=== PATIENT | male | born 1945 | race Caucasian/White ===

== ENCOUNTER 2018-02-26 08:33 | Outpatient (CLI) | payer MEDICARE ==
[~2018-02-26] VITALS: Ht 188 cm; Wt 99.1 kg
--- NOTE | ~2018-02-26 | OP ---
PATIENT NAME: AYAH FLOWERS MEDICAL RECORD: [id number] :[birth year] LOCATION:D.CAT ADMISSION DATE: SURGEON: KEMAR ALBA MD DATE OF OPERATION: 02/26/2018 PROCEDURES: 1. PTCA stent LAD. 2. Left heart catheterization. 3. Selective coronary angiography. 4. Left ventriculogram. INDICATION: Angina and coronary artery disease. PROCEDURE IN DETAIL: After informed consent was obtained and after a detailed description of risks, benefits as well as alternative therapies, the patient elected to proceed with angiogram and angioplasty. The right radial area was prepped and draped in normal sterile fashion. Right radial artery was cannulated via modified Seldinger technique with placement of 6-Italian sheath. All catheters exchanged through this sheath. FINDINGS: Left ventriculogram performed in standard 30-degree HARPER view, reveals good cardiac wall motion throughout all segments. Overall ejection fraction is 60%. SELECTIVE CORONARY ANGIOGRAPHY: 1. Left main is with no significant angiographic disease. 2. Left anterior descending has 80% stenosis proximally, 80% stenosis in the mid vessel. 3. The left circumflex has moderate irregularities, but no flow-limiting stenosis. 4. Right coronary has moderate irregularities, but no flow-limiting stenosis. PTCA STENT OF THE LAD: The stents used were 3.5 x 26 and 3.5 x 12, both Gunnar stents. Result was 0% residual stenosis. OVERALL IMPRESSION: Status percutaneous transluminal coronary angioplasty stent of the left anterior descending going from 80% initial stenosis times 2 to 0% residual. TRANSINT:[id number] Voice Confirmation ID: [id number] DOCUMENT ID: [id number] KEMAR ALBA MD at 1806 CC: [id number] DICTATION DATE: 02/26/18 1210 MACHINE HOSE CUTTER: 02/26/18 1324 DEP CLI 02/26/18 [place] [address]
--- NOTE | ~2018-02-26 | HEMODYNAMI ---
PATIENT:AYAH FLOWERS MEDICAL RECORD: [id number] : 49 LOCATION:DASA ADMISSION DATE: 02/26/18 Generatedon:02/26/201812:08 Patient name: AYAH FLOWERS Patient #: [id number] SSN: : 1945 Date of study: 02/26/2018 Page: Of Hemodynamic Procedure Report Patient Data Patient Demographics Procedure consent was obtained First Name: AYAH Gender: Male Last Name: KRISTIE : 1945 Patient #: [id number] Age: 72 year(s) Race: Unknown Additional ID: [id number] Contact details [address]: [address] [place] [address] State: [place] City: [place] Zip code: [address] Past Medical History Allergies Allergen Reaction Date Comments Reported Other allergy 02/26/2018 COCONUT, SULFA Admission Admission Data Admission Date: 02/26/2018 Admission Time: 8:33 Height (in.): 6.2 BSA: 0.38 (m2) Height (cm.): 15.75 BMI: 4170.13 (kg/m2) Weight (lbs.): 228 Weight (kg.): 103.42 Lab Results Lab Result Date: 02/26/2018 Lab Result Time: 0:00 Biochemistry Name Units Result Min Max BUN mg/dl 21 --(----)-* 7 18 Creatinine mg/dl 1 --(--*-)-- 0.6 1.3 CBC Name Units Result Min Max Hemoglobin g/dl 13.5 --(*---)-- 13.5 17.5 Procedure Procedure Types Cath Procedure Diagnostic Procedure [facility] w/Coronaries Sedation Charges Moderate Sedation up to 30 minutes PCI Procedure Coronary Stent Coronary Stent Initial Procedure Description Procedure Date Procedure Date: 02/26/2018 Procedure Start Time: 11:38 Procedure End Time: 12:07 Procedure Staff Name Function Sy Plunkett MD Performing Physician Mohsen Maynard RN Nurse Gregg Romano RT Scrub [facility] RT Monitor Procedure Data Cath Procedure Fluoroscopy Diagnostic fluoroscopy Total fluoroscopy Time: time: 10.7 min 10.7 min Diagnostic fluoroscopy Total fluoroscopy dose: 831 dose: 831 mGy mGy Contrast Material Contrast Material Type Amount (ml) Isovue 300 102 Entry Location Entry Primary Successful Side Size Upsize Upsize Entry Closure Chang ccessful Closure Location (Fr) 1 (Fr) 2 (Fr) Remarks Device Remarks Radial Right 6 Fr Mechanical artery Short Compression Estimated blood loss: 11 ml Diagnostic catheters Device Type Used For End Catheter Placement DIAGNOSTIC [place] 110cm 5 Procedure Fr catheter ([id number]) Procedure Complications No complications Procedure Medications Medication Administration Route Dosage 0.9% NaCl I.V. 100 ml/hr Oxygen etCO2 Nasal cannula 2 l/min Heparin Flush Bag added to field 2 bags (1000units/500ml NS) Lidocaine 2% added to field 20 Radial Cocktail added to field 1 syringe (Verapomil 2mg/Nitro 400mcg/Heparin 1500units) Versed I.V. 1 mg Fentanyl I.V. 50 mcg Versed I.V. 1 mg Fentanyl I.V. 50 mcg Radial Cocktail I.A. 1 syringe (Verapomil 2mg/Nitro 400mcg/Heparin 1500units) Heparin Bolus I.V. 4000 units Hemodynamics Rest BSA: 0.38 (m2) HGB: 13.5 (g/dl) O2 Consumption: Estimated: 43.01 (ml/min) O2 Con sumption indexed: Estimated:113.18 (ml/min/m) Heart Rate: 63 (bpm) Snapshots Pre Cath Intra NCS Post Cath Vital Signs Time Heart Resp SPO2 etCO2 NIBP (mmHg) Rhythm Pain Sedation Rate (ipm) (%) (mmHg) Status Level (bpm) 11:13:02 62 12 99 38.2 148/98(128) NSR 0 (11) 10(A) , No pain 11:17:48 65 13 99 39.7 137/77(107) NSR 0 (11) 10(A) , No pain 11:22:29 65 12 97 0 130/89(102) NSR 0 (11) 10(A) , No pain 11:27:11 66 15 98 36 121/81(102) NSR 0 (11) 10(A) , No pain 11:31:50 67 14 98 20.2 111/90(101) NSR 0 (11) 10(A) , No pain 11:36:29 59 13 98 23.2 123/80(98) NSR 0 (11) 9(A) , No pain 11:41:13 67 14 99 32.2 101/61(90) NSR 0 (11) 9(A) , No pain 11:45:50 67 13 99 30 111/70(95) NSR 0 (11) 9(A) , No pain 11:50:30 58 14 96 34.5 109/69(84) NSR 0 (11) 9(A) , No pain 11:55:11 58 11 97 8.2 108/67(83) NSR 0 (11) 9(A) , No pain 11:59:50 58 15 98 31.5 107/70(93) NSR 0 (11) 9(A) , No pain 12:04:28 55 13 99 34.5 115/72(95) NSR 0 (11) 9(A) , No pain Medications Time Medication Route Dose Verified Delivered Reason Not es Effectiveness by by 11:10:31 0.9% NaCl I.V. 100 Mohsen Mohsen Per physician ml/hr Aleyda Maynard RN RN 11:10:41 Oxygen etCO2 2 l/min Mohsen Mohsen Per physician Nasal Aleyda Maynard cannula RN RN 11:10:54 Heparin Flush added 2 bags Mohsen Mohsen used for Bag to Lorigan Aleyda procedure (1000units/500ml field CLARK RN NS) 11:11:04 Lidocaine 2% added 20ml Mohsen Mohsen for local to vial Lorigan Peaceigan anesthetic field CLARK RN 11:11:13 Radial Cocktail added 1 Mohsen Mohsen used for (Verapomil to syringe Lorigan Lorigan procedure 2mg/Nitro field CLARK RN 400mcg/Heparin 1500units) 11:24:32 Versed I.V. 1 mg Mohsen Mohsen for sedation Aleyda Maynard RN RN 11:24:41 Fentanyl I.V. 50 mcg Mohsen Mohsen for sedation Aleyda Maynard RN RN 11:37:28 Versed I.V. 1 mg Mohsen Mohsen for sedation Aleyda Maynard RN RN 11:37:34 Fentanyl I.V. 50 mcg Mohsen Mohsen for sedation Aleyda Maynard RN RN 11:39:54 Radial Cocktail I.A. 1 Mohsen Dan for (Verapomil syringe Aleyda Plunkett MD vasodilation 2mg/Nitro RN 400mcg/Heparin 1500units) 11:48:17 Heparin Bolus I.V. 4000 Mohsen Connolly for units Aleyda Maynard anticoagulation RN poultry boner Log Time Note 10:56:45 Mohsen Maynard RN sent for patient. Start room use. 10:56:46 Time tracking: Regular hours (M-F 7:00 - 5:00) 10:56:49 Plan of Care:Hemodynamics will remain stable., Cardiac rhythm will remain stable., Comfort level will be maintained., Respiratory function will remain adequate., Patient/ family verbilizes understanding of procedure., Procedure tolerated without complication., Recovers from procedure without complications.. 10:56:51 Signed procedure consent form obtained from patient. 10:57:23 H&P Date Dictated: 02/16/2018 Within 30 days and on chart., H&P Addendum completed by physician on day of procedure. (MUST COMPLETE FOR ALL OUTPATIENTS). 11:01:45 Patient Height : 6.2 inches 11:01:53 Patient Weight : 228 lbs 11:02:47 Patient received from Pre/Post Procedure Room to CCL 1 Alert and oriented. Tansferred to table in Supine position. 11:02:48 Warm blankets applied, and jhonny hugger turned on for patient comfort. 11:02:49 Correct patient and procedure confirmed by team. 11:02:50 ECG and BP/O2 sat monitors applied to patient. 11:10:31 0.9% NaCl 100 ml/hr I.V. was administered by Mohsen Maynard RN; Per physician; 11:10:41 Oxygen 2 l/min etCO2 Nasal cannula was administered by Mohsen Maynard RN; Per physician; 11:10:54 Heparin Flush Bag (1000units/500ml NS) 2 bags added to field was administered by Mohsen Maynard RN; used for procedure; 11:11:04 Lidocaine 2% 20ml vial added to field was administered by Mohsen Maynard RN; for local anesthetic; 11:11:13 Radial Cocktail (Verapomil 2mg/Nitro 400mcg/Heparin 1500units) 1 syringe added to field was administered by Mohsen Maynard RN; used for procedure; 11:11:18 Vital chart was started 11:12:58 Baseline sample Acquired. 11:13:02 Rhythm: sinus rhythm 11:13:03 Full Disclosure recording started 11:13:04 Pre-procedure instructions explained to patient. 11:13:04 Pre-op teaching completed and patient verbalized understanding. 11:13:06 Family in patients room. 11:13:08 Patient NPO since Midnight. 11:13:24 Patient allergic to Other allergyCOCONUT, SULFA 11:13:27 Is the patient allergic to Iodine/contrast media? No. 11:13:28 Is patient on blood thinner?Yes 11:13:30 ACC The patient was administered the following blood thiners within the last 24 hours: ACCPlavix 11:13:32 Patient diabetic? No. 11:13:38 Previous problem with sedation/anesthesia? No ? 11:13:38 Snore? Yes 11:13:39 Sleep apnea? No 11:13:40 Deviated septum? No 11:13:41 Opens mouth fully? Yes 11:13:42 Sticks out tongue? Yes 11:13:43 Airway obstruction? No ? 11:13:45 Dentures? No ? 11:13:47 Modified Veto's test Ulnar < 7 seconds 11:13:52 Patient pain scale 0/10 ?. 11:14:15 IV patent on arrival in left hand with 0.9% NaCl at [facility]. 11:14:20 Right Radial & Right Groin area was prepped with chlora-prep and draped in sterile fashion 11:14:22 Alarms reviewed by R. N. 11:14:22 Sharps counted by scrub and verified by R.N. 11:14:25 Use device set Radial Dx or PCI 11:14:26 ACIST Syringe (81114) opened to sterile field. 11:14:27 Bag Decanter () opened to sterile field. 11:14:28 ACIST Hand Control (20242) opened to sterile field. 11:14:29 ACIST Manifold (47782) opened to sterile field. 11:14:29 Tegaderm 4 x 4 (1626W) opened to sterile field. 11:14:30 Medline Cath Pack ([id number]) opened to sterile field. 11:14:30 DIAGNOSTIC WIRE .035 260cm J wire (022355) opened to sterile field. 11:14:32 MBrace Wrist Support ([id number]) opened to sterile field. 11:14:34 SHEATH 6Fr Prelude Radial ([id number]) opened to sterile field. 11:19: Lab Result : BUN 21 mg/dl 11:: Lab Result : Creatinine 1 mg/dl 11:: Lab Result : Hemoglobin 13.5 g/dl 11::12 --------ALL STOP TIME OUT------ 11::13 Final Timeout: patient, procedure, and site verified with staff and physician. All members of the team are in agreement. 11:24:14 Right Radial & Right Groin site verified by team. 11::17 Physical assessment completed. ASA score P 2 - A patient with mild systemic disease as per Sy Plunkett MD. 11:24:20 Sedation plan: IV Moderate Sedation Medication:Versed, Fentanyl 11::32 Versed 1 mg I.V. was administered by Mohsen Maynard RN; for sedation; 11:24:38 Zero performed for pressure channel P1 11:24:41 Fentanyl 50 mcg I.V. was administered by Mohsen Maynard RN; for sedation; 11:37:28 Versed 1 mg I.V. was administered by Mohsen Maynard RN; for sedation; 11:37:34 Fentanyl 50 mcg I.V. was administered by Mohsen Maynard RN; for sedation; 11:37:53 Procedure started. 11:38:01 Local anesthetic to right radial artery with Lidocaine 2% by Sy Plunkett MD.INITIAL ACCESS ONLY 11:38:06 Zero performed for pressure channel P1 11:39:32 A 6 Fr Short sheath was inserted into the Right Radial artery 11:39:52 A DIAGNOSTIC [place] 110cm 5 Fr catheter ([id number]) was advanced over the wire and used for Procedure. 11:39:54 Radial Cocktail (Verapomil 2mg/Nitro 400mcg/Heparin 1500units) 1 syringe I.A. was administered by Sy Plunkett MD; for vasodilation; 11:40:32 LV gram done using HARPER 11:40:35 Injector settings: Ml/sec: 7, Volume: 15, 11:41:10 EF : 35 % 11:41:40 RCA angiography performed. 11:41:54 Catheter exchanged over wire. 11:42:19 GUIDE 6FR EBU 3.5 catheter ([id number]) opened to sterile field. 11:42:41 6 Fr EBU 3.5 guide catheter was inserted over the wire 11:44:10 UNABLE TO ENGAGE LT. CORONARY 11:44:15 Guide catheter removed. 11:45:35 GUIDE 6FR EBU 4.0 guide catheter ([id number]) opened to sterile field. 11:45:58 6 Fr EBU 4 guide catheter was inserted over the wire 11:46:50 LCA angiography performed. 11:47:03 INFLATOR Merit BasixCompak (WL3481) opened to sterile field. 11:47:04 CHOICE PT Extra Support 182cm wire ([id number]) opened to sterile field. 11:48:17 Heparin Bolus 4000 units I.V. was administered by Mohsen Maynard RN; for anticoagulation; 11:48:41 CHOICE ES 182 wire advanced. 11:49:01 Wire removed. 11:49:29 GRAPHIX 182cm guide wire ([id number]) opened to sterile field. 11:49:35 GRAPHIX 182 wire advanced. 11:49:47 Wire advanced across lesion. 11:51:29 The REJI RX 3.5 x 26 stent ([id number]) was advanced then removed because of failure to cross lesion 11:53:33 CHOICE PT Extra Support 182cm wire ([id number]) opened to sterile field. 11:55:12 WIRE #2,PT GRAPHIX 182 ADVANCED YUSEF WIRE 11:56:35 Inflate balloon Inflation number: 1 A EUPHORA 3.5 x 20 Balloon ([id number]) was prepped and advanced across the Mid LAD, then inflated to 13 SABRINA for 0:10 (min:sec). 11:58:05 Inflation number: 1 The EUPHORA 3.5 x 20 Balloon ([id number]) was reinflated across the Prox LAD, to 13 SABRINA for 0:10 (min:sec). 11:58:33 Inflation number: 2 The EUPHORA 3.5 x 20 Balloon ([id number]) was reinflated across the Prox LAD, to 13 SABRINA for 0:10 (min:sec). 11:58:59 Balloon removed over the wire. 12:00:46 YUSEF WIRE REMOVED 12:01:04 Place stent Inflation Number: 2 A REJI RX 3.5 x 12 stent ([id number]) was prepped and advanced across the Mid LAD. The stent was deployed at 17 SABRINA for 0:10 (min:sec). 12:01:07 Stent catheter was removed intact over wire. 12:02:29 Place stent Inflation Number: 3 A REJI RX 3.5 x 26 stent ([id number]) was prepped and advanced across the Prox LAD. The stent was deployed at 17 SABRINA for 0:10 (min:sec). 12:02:38 Stent catheter was removed intact over wire. 12:02:48 Wire removed. 12:02:48 Guide catheter removed. 12:03:47 Procedure ended.(Physican Out) 12:03:52 TR BAND Standard ([id number]) opened to sterile field. 12:04:16 Sheath removed intact; hemostasis achieved with Mechanical Compression to the Right Radial artery. 12:04:38 Fluoroscopy time 10.70 minutes. 12:04:41 Fluoroscopy dose: 831 mGy 12:04:41 Flurop Dose total: 831 12:04:44 Contrast amount:Isovue 300 102ml. 12:04:45 Sharps counted by scrub and verified by R.N. 12:04:48 TR band inflated with 10cc of air. 12:04:50 Post-procedure physical assessment completed. ASA score P 2 - A patient with mild systemic disease as per Sy Plunkett MD. 12:04:59 Post procedure rhythm: unchanged. 12:05:01 Estimated blood loss: 11 ml 12:05:31 Post procedure instruction explained to patient.Patient verbalizes understanding. 12:05:32 Patient needs reinforcement of post procedure teaching. 12:06:40 Procedure type changed to Cath procedure, Diagnostic procedure, LHC, LHC w/Coronaries, Sedation Charges, Moderate Sedation up to 30 minutes, PCI procedure, Coronary Stent, Coronary Stent Initial 12:07:06 Procedure and supply charges have been captured, reviewed, submitted and are correct. 12:07:08 Procedure Complication : No complications 12:07:10 Vital chart was stopped 12:07:10 See physician's report for complete and final results. 12:07:11 Report given to Pre/Post Procedure Room. 12:07:14 Patient transfered to Pre/Post Procedure Room with Bed. 12:07:16 Procedure ended. 12:07:16 Full Disclosure recording stopped 12:07:19 End room use (Document Last) Intervention Summary Intervention Notes Time ActionType Lesion and Equipment Used Action# Pressure Duration Attributes 11:51:29 Discard REJI RX 3.5 x Stent 26 stent ([id number]) 11:56:35 Inflate Mid LAD EUPHORA 3.5 x 1 13 00:10 balloon 20 Balloon ([id number]) 11:58:05 Reinflate Prox LAD EUPHORA 3.5 x 1 13 00:10 balloon 20 Balloon ([id number]) 11:58:33 Reinflate Prox LAD EUPHORA 3.5 x 2 13 00:10 balloon 20 Balloon ([id number]) 12:01:04 Place stent Mid LAD REJI RX 3.5 x 2 17 00:10 12 stent ([id number]) 12:02:29 Place stent Prox LAD REJI RX 3.5 x 3 17 00:10 26 stent ([id number]) Device Usage Item Name Manufacture Quantity Catalog Number Hospital Part Current Minimal Lot# / Charge Number Stock Stock Serial# Code ACIST Syringe Acist 1 39191 144114 683463 725953 20 (11192) [employer] Bag Decanter Microtek 1 2001S 845173 48641 978439 5 (2002S) Medical Inc. ACIST Hand Acist 1 59181 261901 425740 350574 5 Control (34341) [employer] ACIST Manifold Acist 1 16758 679921 931760 194840 5 (97471) [employer] Inc Tegaderm 4 x 4 3M 1 1626W 551001 645576 317091 5 (1626W) Medline Cath Cardinal 1 [id number] 436228 [address] [facility] ([id number]) DIAGNOSTIC WIRE St Bello 1 054486 120886 250474 967626 30 .035 260cm J wire (286523) MBrace Wrist Advanced 1 140-0250-00 366018 35345 316340 5 Support Vascular ([id number]) Dynamics SHEATH 6Fr Merit 1 [id number] 700437 069897 328378 5 Prelude Radial Medical ([id number]) DIAGNOSTIC Terumo 1 40-9063 441748 671119 179438 5 [place] 110cm 5 Fr catheter (174817) GUIDE 6FR EBU Medtronic 1 [id number] 722016 65303 724687 3 3.5 catheter (AF1BYI57) GUIDE 6FR EBU Medtronic 1 [id number] 172574 28042 305978 1 4.0 guide catheter ([id number]) INFLATOR Merit Merit 1 IQ6640 551210 703342 343108 15 [facility] (IU1471) CHOICE PT Extra [place] 2 [id number] 119628 237217 714414 5 Support 182cm Scientific wire ([id number]) GRAPHIX 182cm [place] 1 [id number] 155547 592681 759183 5 guide wire Scientific ([id number]) REJI RX 3.5 x Medtronic 1 [id number] 919017 4607851 785073 5 [id number] 26 stent ([id number]) EUPHORA 3.5 x Medtronic 1 [id number] 940290 307931 614157 5 [id number] 20 Balloon ([id number]) REJI RX 3.5 x Medtronic 1 [id number] 273682 7810094 855659 5 [id number] 12 stent ([id number]) TR BAND Terumo 1 [id number] 071673 755078 913387 40 Standard ([id number]) Signature Audit [place] Stage Time Signature Unsigned Intra-Procedure 02/26/2018 Hortencia Guzmán 12:08:39 PM RT(R) Signatures Monitor : Hortencia Guzmán Signature : RT Date : Time : [place] [address] [place] [address]
[~2018-02-26 08:33] MED LIST: ASPIRIN EC81 MG; BRILINTA90 MG PO; CETIRIZINE HCL5 MG; GLUCOSAMINE HC500 MG; PRAVACHOL10 MG; SLOW-MAG 64 MG64 MG
[2018-02-26] MEDS ORDERED: PLAVIX75 MG PO (09:06)
[2018-02-26 09:21] VITALS: BP 134/85; Ht 188 cm; Wt 99.1 kg
[2018-02-26 09:27] LABS: BASOPHILS 0.2 % (0-2); EOSINOPHILS 4.8 % (0-7); HEMATOCRIT 39.4 % (42.0-54.0); HEMOGLOBIN 13.5 g/dL (13.5-17.5); IMMATURE GRANULOCYTES 0.2 % (0-5); LYMPHOCYTES 22.2 % (15-50); MCH 30.9 pg (26.0-34.0); MCHC 34.3 g/dL (31.0-37.0); MCV 90.2 fL (80.0-100.0); MEAN PLATELET VOLUME 10.4 fL (7.4-10.4); MONOCYTES 10.7 % (2-11); NEUTROPHILS 61.9 % (40-80); PLATELET COUNT 152 10x3/uL (130-400); RBC 4.37 10x6/uL (4.20-6.10); RDW 13.9 % (11.5-14.5); WBC 4.2 10x3/uL (4.8-10.8)
[2018-02-26 09:36] LABS: CALC OSMOLALITY 275 mosm/kg (275-300); CALCIUM 8.5 mg/dL (8.5-10.1); CHLORIDE - SERUM 104 mmol/L (98-107); GLUCOSE 85 mg/dL (74-106); POTASSIUM - SERUM 4.4 mmol/L (3.5-5.1); SODIUM 137 mmol/L (136-145); UREA NITROGEN 21 mg/dL (7-18); eGFR NON AFRICAN AMERICAN 78 mL/min (90-120)
== END 2018-02-26 16:08 | disposition home or self-care (01) ==
LOC: D.CATH 08:33
PROVIDERS: Internal Medicine Interventional Cardiology
DX: I25.119 Atherosclerotic heart disease of native coronary artery with unspecified angina pectoris (principal); Z01.812 Encounter for preprocedural laboratory examination
CPT/HCPCS: 93458; C9600

== ENCOUNTER → 2018-04-06 10:50 | Outpatient (CLI) | payer MEDICARE ==
[2018-02-26 09:21] VITALS: BMI 28.0
[~2018-04-06 10:50] MED LIST changes: +PLAVIX75 MG PO
== END | disposition home or self-care (01) ==
LOC: D.CT 10:50
DX: R06.02 Shortness of breath (principal); J15.9 Unspecified bacterial pneumonia

== ENCOUNTER → 2018-09-29 10:11 | Outpatient (CLI) | payer MEDICARE ==
[2018-02-26 09:21] VITALS: BMI 28.0
== END | disposition home or self-care (01) ==
LOC: D.MRI 10:11
PROVIDERS: ATTEND Orthopaedic Surgery
DX: M75.121 Complete rotator cuff tear or rupture of right shoulder, not specified as traumatic (principal)

== ENCOUNTER → 2018-11-10 14:35 | Outpatient (CLI) | payer MEDICARE ==
[2018-02-26 09:21] VITALS: BMI 28.0
== END | disposition home or self-care (01) ==
LOC: D.CT 09:30
PROVIDERS: ATTEND Family Medicine
DX: I25.10 Atherosclerotic heart disease of native coronary artery without angina pectoris (principal)

== ENCOUNTER → 2019-01-13 10:52 | Outpatient (CLI) | payer MEDICARE ==
[2018-02-26 09:21] VITALS: BMI 28.0
== END | disposition home or self-care (01) ==
LOC: D.US 10:52
PROVIDERS: ATTEND Thoracic Surgery (Cardiothoracic Vascular Surgery)
DX: I71.2 Thoracic aortic aneurysm, without rupture (principal)